=== PATIENT | female | born 1980 | race Two or more races ===

== ENCOUNTER 2017-09-12 21:00 | Inpatient (IN) | payer OTHER ==
[~2017-09-12] VITALS: Ht 154.9 cm; Wt 106.6 kg
[2017-09-12] MEDS ORDERED: AMPICILLIN 2,000 MG in NACL 0.9% MINI-BAG PLUS 100 ML IV SCH (21:35)
[2017-09-12] MEDS ORDERED: NALBUPHINE HYDROCHLORIDE 10 MG/ML VIAL IM ONE (21:35)
[2017-09-12] MEDS ORDERED: OXYTOCIN 10 UNITS/ML VIAL IM SCH (21:35)
[2017-09-12] MEDS ORDERED: hydrALAZINE 20 MG/ML VIAL IM ONE ×2 (21:40→22:40)
[2017-09-12] MEDS ORDERED: OXYTOCIN 20 UNITS in LACTATED RINGERS 1,000 ML IV SCH (21:45)
[2017-09-12] MEDS: LACTATED RINGERS 1,000 ML IV SCH (21:56)
[2017-09-12] MEDS ORDERED: AMPICILLIN 2,000 MG VIAL ONE (22:00)
[2017-09-12] MEDS ORDERED: hydrALAZINE 20 MG/ML VIAL ONE (22:00)
[2017-09-12 22:30] LABS: BASOPHILS # (AUTO) 0.2 K/uL (0.00-0.22); BASOPHILS % (AUTO) 1.8 % (0.0-2.0); EOSINOPHILS # (AUTO) 0.1 K/uL (0-0.4); EOSINOPHILS % (AUTO) 0.8 % (0.0-4.0); HEMATOCRIT 43.2 % (36-48); HEMOGLOBIN 13.9 g/dL (12.0-16.0); LYMPHOCYTES # (AUTO) 2.7 K/uL (2.5-16.5); LYMPHOCYTES % (AUTO) 24.7 % (20.5-51.1); MEAN CORPUSCULAR HEMOGLOBIN 26 pg (27-31); MEAN CORPUSCULAR HGB CONC 32 g/dL (33-37); MEAN CORPUSCULAR VOLUME 79.2 fL (80-94); MONOCYTES # (AUTO) 0.7 K/uL (0.8-1.0); NEUTROPHILS # (AUTO) 7.4 K/uL (1.8-7.7); NEUTROPHILS % (AUTO) 66.7 % (42.2-75.2); PLATELET COUNT (AUTO) 200 K/uL (140-450); RED BLOOD CELL COUNT(AUTO) 5.46 MIL/uL (4.20-5.40); RED CELL DISTRIBUTION WIDTH 13.9 % (11.6-13.7); WHITE BLOOD COUNT (AUTO) 11.1 K/uL (4.8-10.8)
[2017-09-12] MEDS ORDERED: MAG SULF 20 GM/H2O PREMIX DRIP 500 ML IV ONE (22:30)
[2017-09-12] MEDS ORDERED: MAG SULF 2000 MG/WATER PREMIX 50 ML IV SCH (22:30)
[2017-09-12 22:46] LABS: ALBUMIN 2.7 g/dL (3.4-5.0); ANION GAP 14.9 (8-16); CARBON DIOXIDE 24.4 mmol/L (21-32); CREATININE 0.6 mg/dL (0.6-1.3); POTASSIUM 4.3 mmol/L (3.5-5.1); TOTAL BILIRUBIN 0.2 mg/dL (0.0-1.0)
[2017-09-12] MEDS ORDERED: hydrALAZINE 20 MG/ML VIAL IVP PRN (22:55)
[2017-09-12 23:17] LABS: APPEARANCE,URINE SL CLOUDY (CLEAR); BILIRUBIN,URINE NEGATIVE (NEGATIVE); BLOOD, URINE NEGATIVE (NEGATIVE); COLOR,URINE YELLOW (YELLOW); LEUKOCYTE ESTERASE ,URINE NEGATIVE (NEGATIVE); NITRITE, URINE NEGATIVE (NEGATIVE); PH,URINE 6.5 (5.0-9.0); UGLUCOSE NEGATIVE (NEGATIVE)
[2017-09-12 23:40] LABS: BARBITURATE, URINE NEG. ng/ml (NEG <=200); BENZODIAZEPINE, URINE NEG. ng/mL (NEG <=200); CANNABINOID, URINE NEG. ng/mL (NEG <=50); COCAINE, URINE NEG. ng/mL (NEG <=300); OPIATE, URINE NEG. ng/mL (NEG <=2000); PHENCYCLIDINE SCREEN,URINE NEG. ng/mL (NEG <=25)
[2017-09-12] MEDS ORDERED: PREN-546 PO (23:40)
[2017-09-12] MEDS ORDERED: FERR325E14 PO (23:41)
[2017-09-12 23:45] VITALS: BP 183/90
[2017-09-12] MEDS: MAG SULF 20 GM/H2O PREMIX DRIP 500 ML IV SCH (23:51)
[2017-09-13] MEDS ORDERED: PROMETHAZINE 25 MG/ML VIAL ONE ×2 (00:03→05:00)
[2017-09-13] MEDS ORDERED: NALBUPHINE HYDROCHLORIDE 10 MG/ML VIAL ONE ×2 (00:03→05:00)
[2017-09-13] MEDS: NALBUPHINE HYDROCHLORIDE 10 MG/ML VIAL IVP PRN ×2 (00:29→05:02)
[2017-09-13] MEDS ORDERED: AMPICILLIN 1,000 MG VIAL ONE ×2 (01:58→05:53)
[2017-09-13] MEDS: AMPICILLIN 1,000 MG in NACL 0.9% MINI-BAG PLUS 50 ML IV SCH ×2 (02:15→06:15)
[2017-09-13 03:31] VITALS: BP 190/106
[2017-09-13] MEDS: LACTATED RINGERS 1,000 ML IV SCH (04:00)
[2017-09-13] MEDS ORDERED: PROMETHAZINE 25 MG/ML VIAL IVP PRN (05:45)
[2017-09-13] MEDS ORDERED: OXYTOCIN 10 UNITS/ML VIAL ONE (07:33)
[2017-09-13] MEDS ORDERED: OXYTOCIN 20 UNITS/LR PREMIX 1,000 ML IV ONE (07:37)
[2017-09-13] MEDS ORDERED: MAG SULF 20 GM/H2O PREMIX DRIP 500 ML IV ONE ×2 (07:38→19:49)
[2017-09-13] MEDS ORDERED: MEASLES, MUMPS, AND RUBELLA 1 VIAL SQVAC PRN (07:45)
[2017-09-13] MEDS ORDERED: IBUPROFEN 800 MG TAB PO PRN (07:45)
[2017-09-13] MEDS ORDERED: oxyCODONE/APAP 5/325 MG 1 TAB TAB PO PRN (07:45)
[2017-09-13] MEDS ORDERED: HYDROcodone/APAP 5/325 MG 1 TAB TAB PO PRN (07:45)
[2017-09-13] MEDS ORDERED: TEMAZEPAM 15 MG CAP PO PRN (07:45)
[2017-09-13] MEDS ORDERED: METHYLERGONOVINE 0.2 MG/ML AMP IM PRN (07:45)
[2017-09-13] MEDS ORDERED: BENZOCAINE/MENTHOL 20%-0.5% 60 GM CAN TP PRN (07:45)
[2017-09-13] MEDS ORDERED: OXYTOCIN 10 UNITS/ML VIAL IM PRN (07:45)
[2017-09-13] MEDS: MAG SULF 20 GM/H2O PREMIX DRIP 500 ML IV SCH (08:26)
[2017-09-13] MEDS ORDERED: LABETALOL 100 MG TAB ONE ×2 (09:46→12:41)
--- NOTE | 2017-09-13 10:16 | NUR ---
PATIENT HAS BEEN SCREENED AND CATEGORIZED LOW NUTRITION RISK. PATIENT WILL BE SEEN WITHIN 7 DAYS OF ADMISSION. 09/19/[address]
[2017-09-13] MEDS ORDERED: oxyCODONE/APAP 5/325 MG 1 TAB TAB ONE ×2 (15:20→21:59)
[2017-09-13] MEDS ORDERED: FERROUS SULFATE 325 MG TABEC PO SCH (18:00)
[2017-09-13] MEDS ORDERED: PRENATAL VIT CALC IRON FOLIC PO SCH (18:00)
[2017-09-13] MEDS ORDERED: MULTIVIT/MIN/CA/FE/FA 1 TAB PO SCH (18:00)
[2017-09-13] MEDS ORDERED: DOCUSATE SOD/SENNA 50/8.6 MG 1 TAB PO SCH (21:00)
[2017-09-13] MEDS ORDERED: LABETALOL 100 MG TAB PO SCH (21:00)
[2017-09-13] MEDS ORDERED: LABETALOL 200 MG TAB ONE (21:51)
[2017-09-14 07:50] LABS: HEMOGLOBIN 12.1 g/dL (12.0-16.0)
[2017-09-14] MEDS: LABETALOL 200 MG TAB PO SCH (08:27)
[2017-09-15] MEDS: LABETALOL 200 MG TAB PO SCH (09:12)
== END 2017-09-15 14:25 | disposition home or self-care (01) | DRG 775 ==
LOC: MLD 21:00 → OBSVTOIN 21:30 → MLD 21:30 → MFCC 09-14 06:54
PROVIDERS: ADMIT Obstetrics & Gynecology; ATTEND Obstetrics & Gynecology
PROC: 10E0XZZ Delivery of Products of Conception, External Approach (ICD-10-PCS; principal; 2017-09-13)
PROC: 10907ZC Drainage of Amniotic Fluid, Therapeutic from Products of Conception, Via Natural or Artificial Opening (ICD-10-PCS; 2017-09-13)
DX: O60.14X0 Preterm labor third trimester with preterm delivery third trimester, not applicable or unspecified (principal); Z68.41 Body mass index [BMI] 40.0-44.9, adult; Z37.0 Single live birth; Z3A.36 36 weeks gestation of pregnancy; Z83.3 Family history of diabetes mellitus; Z80.49 Family history of malignant neoplasm of other genital organs; Z82.0 Family history of epilepsy and other diseases of the nervous system; Z82.49 Family history of ischemic heart disease and other diseases of the circulatory system; O99.214 Obesity complicating childbirth; E66.9 Obesity, unspecified
CPT/HCPCS: 36415; 51702; 80053; 80305; 81003; 83735; 85018; 85025; 86592; 86762; 86886; 86900; 86901; 87340; 87653-90; G0378; J0290; J0360; J2300; J2550; J2590; J3475; J7120